=== PATIENT | female | born 1975 | race Two or more races ===

== ENCOUNTER 2018-03-03 01:32 | Emergency (ER) | payer MEDICARE, MEDICAID ==
[~2018-03-03] VITALS: Ht 162.6 cm; Wt 104.3 kg
--- NOTE | 2018-03-03 01:56 | NUR ---
PT C/O INTERMITTENT BLISTERS/RASH ON GENITAL AREA. PT STATES SHE THINK IT MIGHT BE HERPES.
--- NOTE | 2018-03-03 02:00 | NUR ---
DR DEDE FAIR MD AT BEDSIDE FOR MSE.
--- NOTE | 2018-03-03 02:33 | NUR ---
Patient discharged to home in stable conditon. Written and verbal after care instructions given. Patient verbalizes understanding of instructions. Pt left ER accompanied by significant other. No distress noted. Pt took all personal belongings.
[2018-03-03 02:45] VITALS: BP 136/92
== END 2018-03-03 02:46 | disposition home or self-care (01) ==
LOC: ER 01:32
DX: A60.00 Herpesviral infection of urogenital system, unspecified (principal); Z88.5 Allergy status to narcotic agent
CPT/HCPCS: 99283; A4663

== ENCOUNTER 2018-03-12 23:59 | Emergency (ER) | payer MEDICARE, MEDICAID ==
--- NOTE | 2018-03-13 00:42 | NUR ---
PATIENT LEFT WITHOUT BEING TRIAGED OR SEEN BY ERMD
== END 2018-03-13 00:43 | disposition left against medical advice (07) ==
LOC: ER 03-13 00:07
DX: Z53.21 Procedure and treatment not carried out due to patient leaving prior to being seen by health care provider (principal)